=== PATIENT | female | born 1945 | race Caucasian/White ===

== ENCOUNTER → 2017-01-21 | Outpatient (CLI) | payer OTHER ==
--- NOTE | ~2017-01-21 | MR17 ---
[facility] A Service of [facility] RADIOLOGY TEXT RESULTS PATIENT: RAMON MCCRAY [facility] 47 UNIT #: [id number] AGE: [address]: Danny Fine II, MD SEX: F ORDER DR: [id number] [facility] [address] [place], [place] [address] [id number] O MR#: [id number] Acc #: [id number] NAME: RAMON MCCRAY : 1945 SEX: F STUDY DATE/TIME: 01/21/2017 16:29 UNIT: [facility] ROOM: STUDY DESCRIPTION: MR Brain WWo Contrast Attending Physician: Danny Fine II., M.D. Referring Physician: Danny Fine II., M.D. Ordering Physician: Danny Fine II., M.D. Primary Care Physician: Danny Fine II., M.D. MRI CENTER REPORT This report is preliminary unless electronic signature is present. EXAM Brain MRI with and without contrast HISTORY Short-term memory loss over the past 6-7 months with history of migraines chronically TECHNIQUE Multiplanar imaging of the brain was performed with and without contrast. 12 mL of MultiHance was used. COMPARISON Comparison studies available from 07/28/2008. FINDINGS On diffusion weighted imaging there is no evidence of restricted diffusion to suggest a recent infarct. The routine brain images show atrophy with moderate chronic ischemic changes in the periventricular deep white matter bilaterally. This has progressed since the previous scan in 2007. No mass lesions are seen. There is no evidence of hemorrhage on gradient echo imaging. After contrast administration, no abnormal enhancement is seen. Extraaxial structures are unremarkable. IMPRESSION Atrophy with chronic ischemic changes around ventricles to a moderate degree showing progression since 2007. No acute findings. Dictated by... Josh Gatica M.D. THIS IS AN ELECTRONICALLY VERIFIED REPORT Josh Gatica M.D. at 01/22/2017 4:29 PM [facility] A Service of [facility] RADIOLOGY TEXT RESULTS PATIENT: RAMON MCCRAY LOCATION: [facility] : 47 UNIT #: [id number] AGE: [address]: Danny Fine II, MD SEX: F ORDER DR: Vickie TD: 01/22/2017 13:30 JOB #: [id number] MRI CENTER REPORT Page 1 of 1 COPY
[2017-01-21 16:31] LABS: POC - CREATININE 0.79 mg/dL (0.44-1.03); POC - GFR >60.0 mL/min (>60)
== END | disposition home or self-care (01) ==
LOC: CMRI 15:21
PROVIDERS: Psychiatry & Neurology Neurology
DX: R41.3 Other amnesia (principal); I67.82 Cerebral ischemia; G31.9 Degenerative disease of nervous system, unspecified
CPT/HCPCS: 70553; 82565; A9577